=== PATIENT | male | born 1955 | race Caucasian/White ===

== ENCOUNTER 2017-11-11 13:24 | Emergency (ER) | payer SELFPAY ==
[2017-11-11] MEDS ORDERED: TETANUS/DIPHTHERIA TOX-ADULT 0.5 ML SYR (>=7YO) IM ONE (14:32)
[2017-11-11] MEDS ORDERED: CEPHALEXIN 500 MG CAPSULE PO ONE (14:33)
--- NOTE | 2017-11-11 14:33 | ER Document Report ---
ED Medical Screen (RME) - General Chief Complaint: Laceration Stated Complaint: LEG PAIN Time Seen by Provider: 11/11/17 14:32 Notes: Right leg penetrating wound. - Related Data Allergies/Adverse Reactions: No Known Allergies Allergy (Unverified 11/11/17 13:32) Past Medical History - Social History Chew tobacco use (# tins/day): No Frequency of alcohol use: Rare Drug Abuse: None Renal/ Medical History: Denies: Hx Peritoneal Dialysis Physical Exam - Vital signs Vitals: Temp Pulse Resp BP Pulse Ox 98.5 F 80 18 135/69 H 99 11/11/17 13:40 11/11/17 13:40 11/11/17 13:40 11/11/17 13:40 11/11/17 13:40 Course - Vital Signs Vital signs: Temp Pulse Resp BP Pulse Ox 98.5 F 80 18 135/69 H 99 11/11/17 13:40 11/11/17 13:40 11/11/17 13:40 11/11/17 13:40 11/11/17 13:40
[2017-11-11] MEDS ORDERED: LIDOCAINE 1%/EPINEPHRINE INJ 20 ML VIAL INJ ONE (15:58)
[2017-11-11] MEDS ORDERED: OXYCODONE-ACETAMINOPHEN 5-325 MG TABLET PO ONE (15:58)
--- NOTE | 2017-11-11 16:03 | ER Document Report ---
HPI - HPI Patient complains to provider of: Leg laceration Onset: Just prior to arrival Onset/Duration: Sudden Quality of pain: Achy Pain Level: 4 Context: Patient states that he was working underneath a vehicle in which she was able to stand under the vehicle. Patient states that he was walking on [employer] and fell through a hole in the [employer]. Patient had a piece of metal punctured his leg in which he fell upon. Patient states that his leg fell through the great and he landed in dirty water that may have contaminated his puncture wound. Associated Symptoms: Other - Right leg puncture wound Exacerbated by: Movement Relieved by: Denies Similar symptoms previously: No Recently seen / treated by doctor: No - ROS ROS below otherwise negative: Yes Systems Reviewed and Negative: Yes All other systems reviewed and negative - CONSTITUTIONAL Constitutional: DENIES: Fever, Chills - MUSCULOSKELETAL Musculoskeletal: REPORTS: Extremity pain - DERM Skin Color: Normal Skin Problems: Puncture Wound Past Medical History - General Information source: Patient - Social History Smoking Status: Current Every Day Smoker Chew tobacco use (# tins/day): No Frequency of alcohol use: Rare Drug Abuse: None Occupation: Automotive Lives with: Family Family History: Reviewed & Not Pertinent Patient has suicidal ideation: No Patient has homicidal ideation: No Endocrine Medical History: Reports: Hx Diabetes Mellitus Type 2 Renal/ Medical History: Denies: Hx Peritoneal Dialysis Past Surgical History: Reports: Hx Orthopedic Surgery Vertical Provider Document - CONSTITUTIONAL Agree With Documented VS: Yes Exam Limitations: No Limitations General Appearance: WD/WN, No Apparent Distress - HEENT HEENT: Atraumatic, Normocephalic - NECK Neck: Normal Inspection - RESPIRATORY Respiratory: Breath Sounds Normal, No Respiratory Distress - CARDIOVASCULAR Cardiovascular: Regular Rate, Regular Rhythm Pulses: Normal: Dorsalis pedis - MUSCULOSKELETAL/EXTREMETIES Musculoskeletal/Extremeties: MAEW, Tender - R medial aspect of proximal tibia with large PW/lac, No Edema - NEURO Level of Consciousness: Awake, Alert, Appropriate Motor/Sensory: No Motor Deficit - DERM Integumentary: Warm, Dry, Laceration - PW/Lac to RLE 2x2 cm, no active bleeding Course - Re-evaluation Re-evalutation: 11/11/17 18:17 Wound irrigated with thousand mL's of normal saline as well as Betadine solution. Wound probed, puncture wound tracks proximally about 5cm. Patient does have a history of diabetes as well as history of contaminated wound. Wound packed with half-inch iodoform gauze after being anesthetized with 1% lidocaine with epinephrine. Patient tolerated procedure well. Patient advised of worsening signs or symptoms that he will need to follow-up immediately for. Patient advised that he will need to follow-up with his primary doctor, local ER or here for recheck in 2 days. Patient verbalized understanding and agrees with plan of care. - Vital Signs Vital signs: Temp Pulse Resp BP Pulse Ox 98.5 F 80 18 135/69 H 99 11/11/17 13:40 11/11/17 13:40 11/11/17 13:40 11/11/17 13:40 11/11/17 13:40 - Diagnostic Test Radiology reviewed: Image reviewed, Reports reviewed Discharge - Discharge Clinical Impression: Puncture wound of leg not thigh Qualifiers: Encounter type: initial encounter Laterality: right Qualified Code(s): S81.831A - Puncture wound without foreign body, right lower leg, initial encounter Condition: Stable Disposition: HOME, SELF-CARE Instructions: Oral Narcotic Medication ([facility]), Prophylactic Antibiotic ([facility]), Puncture Wound ([facility]), Tetanus Immunization Given ([facility]) Additional Instructions: Return immediately for any new or worsening symptoms Followup with your primary care provider, call tomorrow to make a followup appointment You will need to have a wound recheck in 2 days. They will likely need to repack your puncture wound. You can follow-up either here, with your primary doctor or with a local emergency department to have the wound rechecked in 2 days. He should follow-up immediately for any worsening of symptoms. Including increased pain, swelling, fever, redness, or any concerning symptoms. Prescriptions: Cephalexin Monohydrate [Keflex 500 mg Capsule] 500 mg PO Q6H 7 Days capsule Oxycodone HCl/Acetaminophen [Percocet 5-325 mg Tablet] 1 tab PO ASDIR PRN #15 tablet PRN Reason: Forms: Smoking Cessation Education Referrals: MANNY GUADARRAMA MD [Primary Care Provider] - 11/13/17
--- NOTE | 2017-11-11 16:36 | RADIOLOGY REPORT (SQ) ---
EXAM DESCRIPTION: KNEE RIGHT 4 VIEWS COMPLETED DATE/TIME: 11/11/2017 4:19 pm REASON FOR STUDY: fall, PW COMPARISON: None. NUMBER OF VIEWS: Four views. TECHNIQUE: AP, lateral, and both oblique radiographic images acquired of the right knee. LIMITATIONS: None. FINDINGS: MINERALIZATION: Normal. BONES: No acute fracture or dislocation. 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 The possibility of previous trauma cannot be completely excluded however. A sepa rate bony ossicle is identified at the level of the lateral femoral condyles which may be related to previous trauma. JOINT: No effusion. SOFT TISSUES: No soft tissue swelling. No radio-opaque foreign body. OTHER: No other significant finding. IMPRESSION: NO RADIOGRAPHIC EVIDENCE OF ACUTE INJURY. Other findings as noted above. TECHNICAL DOCUMENTATION: JOB ID: [id number] [employer]- All Rights Reserved Reading location - IP/workstation name: [email or web address]
[2017-11-11] MEDS ORDERED: DIPH/PERTUSS(ACELL)/TETANUS VAC/PF 0.5 ML SYR (>=10YO) IM ONE (18:49)
[2017-11-11 19:27] VITALS: BP 132/71
== END 2017-11-11 19:27 | disposition home or self-care (01) ==
LOC: ER 13:24
DX: S81.831A Puncture wound without foreign body, right lower leg, initial encounter (principal); Z23 Encounter for immunization; W17.89XA Other fall from one level to another, initial encounter; F17.200 Nicotine dependence, unspecified, uncomplicated; E11.9 Type 2 diabetes mellitus without complications
CPT/HCPCS: 99283; 90471; 73564; 90715; J3490